=== PATIENT | female | born 1945 | race Caucasian/White ===

== ENCOUNTER 2016-10-19 10:36 | Emergency (ER) | payer MEDICARE, MEDICAID ==
[2016-10-19 10:37] VITALS: BMI 39.1
[2016-10-19] MEDS ORDERED: ONDANSETRON HCL 4 MG/2 ML VIAL IV ONE (10:50)
[2016-10-19] MEDS ORDERED: NS 1,000 ML IV ONE (10:50)
--- NOTE | 2016-10-19 10:56 | EDPRACDOC ---
<Bradley Nesbitt - Last Filed: 10/19/16 13:21> - General Information Information Source: Patient Mode Of Arrival: Ambulance - History of Present Illness Onset: 2 weeks Exact Onset of Symptoms: Unknown HPI: Pt c/o increased weakness over 2-3 weeks. Denies fever, earache, sore throat, congestion, cough, cp, sob, abd pain, n/v, changes in bowel or bladder, leg swelling, rash. pt recently admitted for PNA and completed antibiotics for UTI. Symptoms Started: Reports: Gradually Symptoms Description: Constant Weakness: Bilateral: Generalized Symptoms: Reports: Weak Symptom Severity: Reports: Unable to performs ADL's Associated signs and symptoms:: Reports: None <Cassie Alfred - Last Filed: 10/19/16 13:23> - General Information Stated Complaint: WEAKNESS Time Seen by Provider: 10/19/16 10:42 Home Medications: Home Medications Atorvastatin Calcium 40 mg PO QHS 02/01/14 Benazepril HCl [Lotensin] 10 mg PO DAILY 02/01/14 Budesonide/Formoterol Fumarate [Symbicort 160-4.5 Mcg Inhaler] 2 puff INH BID CloNIDine (Antihypertensive) [Catapres] 0.1 mg PO BID 02/01/14 Fenofibrate [Tricor] 145 mg PO DAILY 02/01/14 Furosemide 40 mg PO Q48H 02/01/14 Glimepiride 8 mg PO DAILY 02/01/14 Insulin Glargine,Hum.rec.anlog [Lantus] 71 units SQ QHS 02/01/14 Levothyroxine [Synthroid, Levoxyl] 25 mcg PO DAILY 02/01/14 Metoprolol Tartrate 50 mg PO TID 02/01/14 Montelukast Sodium 10 mg PO DAILY 02/01/14 Pantoprazole Sodium 40 mg PO DAILY 02/01/14 Paroxetine HCl 40 mg PO DAILY 02/01/14 Potassium Chloride 10 meq PO DAILY 02/01/14 Pregabalin [Lyrica] 50 mg PO TID 02/01/14 Spironolactone 25 mg PO DAILY 02/01/14 Acetaminophen [Tylenol Extra Strength] 1,000 mg PO Q6H PRN 10/03/16 Albuterol/Ipratropium Neb [Duoneb] 3 ml NEB Q6H PRN 10/03/16 Calcium Carbonate/Vitamin D2 [Oyster Shell Calcium-Vit D Tab] 1 tab PO DAILY Cyanocobalamin (Vitamin B-12) [Vitamin B-12 (cyanocobalamin)] 1,000 mcg SL DAILY 10/03/16 Dabigatran Etexilate Mesylate [Pradaxa] 75 mg PO BID 10/03/16 Diphenhydramine [Benadryl] 25 mg PO Q4H PRN 10/03/16 Fexofenadine HCl [Sabra] 180 mg PO DAILY 10/03/16 Furosemide [Lasix] 20 mg PO Q48H 10/03/16 Glycerin/Propylene Glycol [Artificial Tears Drops] 1 drop OU Q4H 10/03/16 Guaifenesin [Robitussin] 10 ml PO Q6H PRN 10/03/16 Hydrocodone Bit/Acetaminophen [[place] 5-325 Tablet] 1 tab PO Q6H PRN 10/03/16 Loperamide HCl [Imodium A-D] 2 mg PO .UP TO 8DOSES PRN 10/03/16 Mag Hydrox/Al Hydrox/Simeth [Maalox Suspension] 30 ml PO Q6H PRN 10/03/16 Olopatadine HCl [Pataday] 1 drop OU DAILY 10/03/16 PEG-Electrolytes (Miralax) [Miralax] 17 gm PO DAILY 10/03/16 Phosp Acid/Dextrose/Fructose [Emetrol Oral Solution] 2 tbsp PO Q15MX4 10/03/16 Nitrofurantoin [Macrobid] 100 mg PO BID #14 cap 10/19/16 Ondansetron HCl [Zofran] 4 mg PO Q8H PRN #15 tab 10/19/16 Oseltamivir Phosphate [Tamiflu] 75 mg PO .DAILY X 14D 10/19/16 Allergies/Adverse Reactions: Allergies Allergy/AdvReac Type Severity Reaction Status Date / Time codeine Allergy Hives* Verified 10/03/16 21:58 hydromorphone HCl Allergy Hives* Verified 10/03/16 21:58 [From Dilaudid] propoxyphene HCl Allergy Hives* Verified 10/03/16 21:58 [From Darvon] Sulfa (Sulfonamide Allergy Hives* Verified 10/03/16 21:58 Antibiotics) tramadol Allergy Hives* Verified 10/03/16 21:58 ED Past Medical History - History Reviewed Yes Nurses notes reviewed and agree except as marked - Patient Medical History Neurological History: Reports: Cerebrovascular Accident Cardiac History: Reports: Hypertension, Hypercholesterolemia GI/ History: Reports: Gastroesophageal Reflux Psychological History: Reports: Depression Systemic History: Reports: Diabetes - Social Medical History Smoking Status: Never smoker ETOH: None Substance Abuse: None <Cassie Alfred - Last Filed: 10/19/16 13:23> EDM Review of Systems - Review of Systems Constitutional: Weakness Ears: No Symptoms Reported. negative: Pain, Hearing Loss, Drainage, Ear Pulling Throat: No Symptoms Reported. negative: Pain, Swelling Nose: No Symptoms Reported. negative: Congestion, Bleeding, Discharge, Injection, Swelling, Deformity, Ecchymosis, Tender, Abrasion, Laceration Mouth: No Symptoms Reported. negative: Pain, Drooling Respiratory: No Symptoms Reported. negative: Cough, Brassy Cough, Barky Cough, Shortness of Breath, Wheezing, Hemoptysis Cardiovascular: No Symptoms Reported. negative: Chest Pain, Palpitations, Syncope, Edema, Orthopnea, PND, Skin Mottling, Cyanosis Gastrointestinal: No Symptoms Reported. negative: Pain, Constipation, Nausea, Vomiting, Diarrhea, Melena, Formula Intolerance Genitourinary: No Symptoms Reported. negative: Dysuria, Hematuria, Frequency, Discharge, Bleeding, Testicular Pain, Neurological: Weakness. negative: No Symptoms Reported, Dizziness, Gait Difficulty, Headache, Numbness, Seizure, Speech Difficulty Musculoskeletal: No Symptoms Reported. negative: Neck, Chestwall, Ribs, Back, Shoulder, Arm, Elbow, Forearm, Wrist, Hand, Pelvis, Hip, Femur, Knee, Leg, Ankle , Foot Integumentary: No Symptoms Reported. negative: Itching, Rash, Bruising, Wound Allergic/Immunologic: No Symptoms Reported. negative: Hives, Itching Hematologic: No Symptoms Reported. negative: Lymphadenopathy, Easy Bruising, Easy Bleeding Psychiatric: No Symptoms Reported. negative: Anxiety, Depression, Hallucinations, Insomnia, Suicidal <Cassie Alfred - Last Filed: 10/19/16 13:23> - Physical Exam Last recorded Vital Signs: Last Vital Signs Temp 97.8 F 10/19/16 10:36 Pulse 73 10/19/16 10:36 Resp 16 10/19/16 10:36 BP 141/75 10/19/16 10:36 Pulse Ox 97 10/19/16 10:36 Oxygen Pulse Oxygen Saturation 97 O2 Device Room Air Oxygen Flow Rate Fraction of Inspired Oxygen ( FIO2) <Bradley Nesbitt - Last Filed: 10/19/16 13:21> - Physical Exam Constitutional: Alert Oriented to: Time, Person, Place Last recorded Vital Signs: Oxygen Pulse Oxygen Saturation O2 Device Oxygen Flow Rate Fraction of Inspired Oxygen ( FIO2) - HEENT Head: Normal ( normocephalic) Eye Exam: Normal (PERRL, EOMI, Sclera white) Oropharynx: Membranes Dry Tympanic Membrane: Normal ENT EAC: Normal TMJ: Normal Nose: No Symptoms Reported (septum midline) Neck: Normal (FROM, trachea at midline) - Respiratory/Cardiovascular Respiratory: Normal - CTA (BBS clear to auscultation without adventitious sounds ) Cardiovascular: Normal (RRR without murmur, gallop or rub) - GI Auscultation: Normal (NABS) Palpation: Normal (Soft,No rebound or guarding, non distended) Tenderness: Non tender - Musculoskeletal Back: Normal (Non-Tender) Extremities: Normal (Normal tone, Pulses 2+ No cyanosis or edema, FROM) - Integumentary Skin: Normal, Warm, Dry Lymphatics: Normal (no adenopathy) - Neurologic Memory Impaired: Normal Motor Function: Normal (Normal tone, Pulses 2+ No cyanosis or edema, FROM) Cranial Nerve: Normal (CN II-X11 intact sensation, strength 5/5) Cerebellar: Normal Mood Description: Normal Perception: Normal <Cassie Alfred - Last Filed: 10/19/16 13:23> - Results 10/19/16 12:19 10/19/16 12:00 WBC 8.4 xk/uL (3.8-10.8) 10/19/16 12:19 RBC 4.16 xM/uL (4.20-5.40) L 10/19/16 12:19 Hgb 12.6 g/dL (12.0-16.0) 10/19/16 12:19 Hct 39.0 % (36-47) 10/19/16 12:19 MCV 94 fL (81-99) 10/19/16 12:19 MCH 30.3 pg (27-32) 10/19/16 12:19 MCHC 32.3 g/dl (33-36) L 10/19/16 12:19 RDW 15.3 % (11.5-14.5) H 10/19/16 12:19 Plt Count 64 xk/uL (130-400) L 10/19/16 12:19 MPV 11.6 fL (7.4-10.4) H 10/19/16 12:19 Neut % (Auto) 72.3 % (45-76) 10/19/16 12:19 Lymph % (Auto) 13.5 % (17-44) L 10/19/16 12: [place] % (Auto) 12.2 % (3-10) H 10/19/16 12: Eos % (Auto) 1.4 % (0-5) 10/19/16 12:19 Baso % (Auto) 0.6 % (0-2) 10/19/16 12:19 Absolute Neuts (auto) 6.05 xk/uL (1.7-8.2) 10/19/16 12:19 Absolute Lymphs (auto) 1.09 xk/uL (0.65-4.75) 10/19/16 12:19 Platelet Estimate Large plts present (NORMAL) 10/19/16 12:19 RBC Morphology 1+ aniso 10/19/16 12:19 PT 18.0 SEC (9.2-11.2) H 10/19/16 12:19 INR 1.7 10/19/16 12:19 APTT 73.5 SEC (22-35) H 10/19/16 12:19 Sodium 141 mEq/L (137-146) 10/19/16 12:00 Potassium 5.2 mEq/L (3.5-5.1) H 10/19/16 12:00 Chloride 107 mEq/L (98-107) 10/19/16 12:00 Carbon Dioxide 24 mMOL/L (22-33) 10/19/16 12:00 Anion Gap 15 mEq/L (8-16) 10/19/16 12:00 BUN 66 MG/DL (7-17) H 10/19/16 12:00 Creatinine 2.70 MG/DL (0.52-1.04) H 10/19/16 12:00 Estimated GFR (MDRD) 17 mL/min (>=60) L 10/19/16 12:00 Glucose 132 MG/DL (70-99) H 10/19/16 12:00 Calculated Osmolality 292 MOs/Kg (270-290) H 10/19/16 12:00 Lactic Acid 1.5 mEq/L (0.7-2.1) 10/19/16 12:00 Calcium 8.1 MG/DL (8.4-10.2) L 10/19/16 12:00 Corrected Calcium 8.7 MG/DL (8.4-10.2) 10/19/16 12:00 Total Bilirubin 0.8 MG/DL (0.2-1.3) 10/19/16 12:00 AST 25 IU/L (14-36) 10/19/16 12:00 ALT 35 IU/L (9-52) 10/19/16 12:00 Alkaline Phosphatase 41 IU/L (55-165) L 10/19/16 12:00 Creatine Kinase 141 IU/L (30-134) H 10/19/16 12:00 CK-MB (CK-2) 2.6 ng/mL (0-4.5) 10/19/16 12:00 Troponin I < 0.01 ng/mL (<.04) 10/19/16 12:00 [id number]-Vnxjhtsnkak Pept 1400 pg/mL (0-900) H 10/19/16 12:00 Total Protein 6.0 G/DL (6.3-8.2) L 10/19/16 12:00 Albumin 3.4 G/DL (3.5-5.0) L 10/19/16 12:00 Urine Color Yellow 10/19/16 12:45 Urine Clarity Clear 10/19/16 12:45 Urine pH 7.0 (5.0-8.0) 10/19/16 12:45 Ur Specific [place] 1.005 (1.003-1.035) 10/19/16 12:45 Urine Protein Neg (NEG/TRACE) 10/19/16 12:45 Urine Glucose (UA) Neg (NEGATIVE) 10/19/16 12:45 Urine Ketones Neg (NEGATIVE) 10/19/16 12:45 Urine Occult Blood Neg (NEG/TRACE) 10/19/16 12:45 Urine Nitrite Neg (NEGATIVE) 10/19/16 12:45 Urine Bilirubin Neg (NEGATIVE) 10/19/16 12:45 Urine Urobilinogen <2.0 MG/DL (0-1) 10/19/16 12:45 Ur Leukocyte Esterase 1+ (NEGATIVE) H 10/19/16 12:45 Urine RBC 0-2 (0-5) 10/19/16 12:45 Urine WBC 5-10 (0-5) H 10/19/16 12:45 Ur Epithelial Cells 1+ 10/19/16 12:45 Urine Bacteria Few (NEG/FEW) 10/19/16 12:45 Lab Results 10/19/16 10/19/16 10/19/16 12:45 12:19 12:19 WBC 8.4 RBC 4.16 L Hgb 12.6 Hct 39.0 MCV 94 MCH 30.3 MCHC 32.3 L RDW 15.3 H Plt Count 64 L MPV 11.6 H Neut % (Auto) 72.3 Lymph % (Auto) 13.5 L Hind[place] % (Auto) 12.2 H Eos % (Auto) 1.4 Baso % (Auto) 0.6 Absolute Neuts (auto) 6.05 Absolute Lymphs (auto) 1.09 Platelet Estimate Large plts present RBC Morphology 1+ aniso PT 18.0 H INR 1.7 APTT 73.5 H Sodium Potassium Chloride Carbon Dioxide Anion Gap BUN Creatinine Estimated GFR (MDRD) Glucose Calculated Osmolality Lactic Acid Calcium Corrected Calcium Total Bilirubin AST ALT Alkaline Phosphatase Creatine Kinase CK-MB (CK-2) Troponin I Tcf-L-Mwyccuenill Pept Total Protein Albumin Urine Color Yellow Urine Clarity Clear Urine pH 7.0 Ur Specific [place] 1.005 Urine Protein Neg Urine Glucose (UA) Neg Urine Ketones Neg Urine Occult Blood Neg Urine Nitrite Neg Urine Bilirubin Neg Urine Urobilinogen <2.0 Ur Leukocyte Esterase 1+ H Urine RBC 0-2 Urine WBC 5-10 H Ur Epithelial Cells 1+ Urine Bacteria Few 10/19/16 10/19/16 12:00 12:00 WBC RBC Hgb Hct MCV MCH MCHC RDW Plt Count MPV Neut % (Auto) Lymph % (Auto) [place] % (Auto) Eos % (Auto) Baso % (Auto) Absolute Neuts (auto) Absolute Lymphs (auto) Platelet Estimate RBC Morphology PT INR APTT Sodium 141 Potassium 5.2 H Chloride 107 Carbon Dioxide 24 Anion Gap 15 BUN 66 H Creatinine 2.70 H Estimated GFR (MDRD) 17 L Glucose 132 H Calculated Osmolality 292 H Lactic Acid 1.5 Calcium 8.1 L Corrected Calcium 8.7 Total Bilirubin 0.8 AST 25 ALT 35 Alkaline Phosphatase 41 L Creatine Kinase 141 H CK-MB (CK-2) 2.6 Troponin I < 0.01 Zep-C-Iuwkcoomahy Pept 1400 H Total Protein 6.0 L Albumin 3.4 L Urine Color Urine Clarity Urine pH Ur Specific [place] Urine Protein Urine Glucose (UA) Urine Ketones Urine Occult Blood Urine Nitrite Urine Bilirubin Urine Urobilinogen Ur Leukocyte Esterase Urine RBC Urine WBC Ur Epithelial Cells Urine Bacteria <Bradley Nesbitt - Last Filed: 10/19/16 13:21> - Differential Diagnosis Anemia, Dehydration, Dysrhythmia, Electrolyte disorder, Hypoglycemia, Other (uti ) - Results 10/19/16 12:19 10/19/16 12:00 - EKG EKG #1 EKG Time: 11:38 Rate: bpm: 76 [place]: Normal Rhythm: Afib Block: None ST: Nonsp Comparison: 10/03/16 (no significant change) - Diagnostic Imaging Chest Image interpreted by: Radiologist IMPRESSION: No significant change. Bibasilar atelectasis central venous congestion. <Cassie Alferd - Last Filed: 10/19/16 13:23> - Departure Yes I personally saw and evaluated the patient. <Bradley Nesbitt - Last Filed: 10/19/16 13:21> Decision Time to Discharge: 13:22 - Departure Disposition: Home Education/Counseling Given To: Patient Education/Counseling Given Regarding: Diagnosis, Treatment, Follow Up <Cassie Alfred - Last Filed: 10/19/16 13:23> - Departure Condition: Good Final Diagnosis: Accidental fall, Dehydration UTI (urinary tract infection) Qualifiers: Urinary tract infection type: acute cystitis Hematuria presence: without hematuria Qualified Code(s): N30.00 - Acute cystitis without hematuria Instructions: Urinary Tract Infection in Women (ED), Dysuria Referrals: Kerry Saunders MD [Primary Care Provider] - One Week Prescriptions: Nitrofurantoin [Macrobid] 100 mg PO BID #14 cap Ondansetron HCl [Zofran] 4 mg PO Q8H PRN #15 tab PRN Reason: Nausea/Vomiting Additional Instructions: Increase fluids. Return for worse or different symptoms.
[2016-10-19] MEDS ORDERED: NS 1,000 ML IV SCH (11:00)
--- NOTE | 2016-10-19 11:28 | DIRPT ---
CLINICAL DATA: Sepsis, generalized weakness EXAM: PORTABLE CHEST 1 VIEW COMPARISON: 10/03/2016 FINDINGS: Stable enlarged cardiac silhouette. Bibasilar atelectasis noted. Mild central venous congestion. No focal infiltrate. No pneumothorax. IMPRESSION: No significant change. Bibasilar atelectasis central venous congestion. Electronically Signed By: Hany Mcarthur M.D. On: 10/19/2016 11:25
[2016-10-19 12:30] LABS: AUTOMATED BASOPHIL 0.6 % (0-2); AUTOMATED EOSINOPHIL 1.4 % (0-5); AUTOMATED LYMPH 13.5 % (17-44); AUTOMATED MONOCYTE 12.2 % (3-10); AUTOMATED NEUTROPHIL 72.3 % (45-76); MPV 11.6 fL (7.4-10.4)
[2016-10-19 12:42] LABS: PARTIAL THROMB. TIME 73.5 SEC (22-35); PT-INR 1.7
[2016-10-19 12:44] LABS: BLOOD UREA NITROGEN 66 MG/DL (7-17); CALC CORRECTED 8.7 MG/DL (8.4-10.2); CALCIUM 8.1 MG/DL (8.4-10.2); CALCULATED OSMOLALITY 292 MOs/Kg (270-290); CHLORIDE 107 mEq/L (98-107); CPK TOTAL WITH POSSIBLE MB 141 IU/L (30-134); GLUCOSE 132 MG/DL (70-99); SODIUM LEVEL 141 mEq/L (137-146)
[2016-10-19 13:03] LABS: LEUKOCYTES/URINE 1+ (NEGATIVE); NITRITE/URINE NEG (NEGATIVE); RBC/URINE 0-2 (0-5); URINE OCCULT BLOOD NEG (NEG/TRACE)
[2016-10-19 13:13] LABS: CPKMB 2.6 ng/mL (0-4.5)
[2016-10-19 14:15] VITALS: BP 167/70; PULSE 70; TEMP 98
== END 2016-10-19 14:13 | disposition home or self-care (01) ==
LOC: ED 10:36
DX: E86.0 Dehydration (principal); N30.00 Acute cystitis without hematuria; W19.XXXA Unspecified fall, initial encounter
CPT/HCPCS: 36415; 71010; 80053; 81001; 82550; 82553; 83605; 83880; 84484; 85025; 85610; 85730; 87040; 87086; 93005; 96361; 96374; 99284; J2405; 96360